=== PATIENT | female | born 1990 | race Caucasian/White ===

== ENCOUNTER 2022-01-18 06:26 | Emergency (ER) | payer OTHER ==
[~2022-01-18] VITALS: Ht 160 cm; Wt 88.5 kg
[2022-01-18 06:32] VITALS: BP 133/70
--- NOTE | 2022-01-18 06:49 | NUR ---
PATIENT TO BED AMBULATORY
--- NOTE | 2022-01-18 07:14 | NUR ---
Dr. Lindsay examining patient.
--- NOTE | 2022-01-18 07:21 | NUR ---
BIB SELF C/O BLOOD IN STOOL AT 0100 AND 0500.BRIGHT RED BLOOD. PT STATES HAD 1 CLOT AT 0500. PT STATES THIS HAS HAPPENED BEFORE AND HAS A HX OF HEMORRHOIDS. DENIES N/V/D; SKIN IS PINK/WARM/DRY; ABD SOFT. NO TENDERNESS. AAOX4 WITH EVEN AND STEADY GAIT; LUNGS CLEAR BL; HR EVEN AND REGULAR; PT DENIES ANY FEVER, CP, SOB, OR COUGH AT THIS TIME; PATIENT STATES PAIN OF 1/10 AT THIS TIME; VSS; PATIENT POSITIONED FOR COMFORT; HOB ELEVATED; BEDRAILS UP X1; BED DOWN. ER MD MADE AWARE OF PT STATUS.
--- NOTE | 2022-01-18 07:25 | NUR ---
LAB AT BEDSIDE.
--- NOTE | 2022-01-18 07:26 | NUR ---
RECEIVED REPORT FROM KJ FINNEGAN RN. TRANSFER OF CARE AT THIS TIME.
[2022-01-18 07:52] LABS: BASOPHILS % (AUTO) 0.2 % (0.0-2.0); EOSINOPHILS % (AUTO) 0.3 % (0.0-4.0); HEMATOCRIT 34.9 % (36-48); HEMOGLOBIN 11.6 g/dL (12.0-16.0); LYMPHOCYTES # (AUTO) 1.1 K/uL (2.5-16.5); LYMPHOCYTES % (AUTO) 8.9 % (20.5-51.1); MEAN CORPUSCULAR HEMOGLOBIN 29 pg (27-31); MEAN CORPUSCULAR HGB CONC 33 g/dL (33-37); MEAN CORPUSCULAR VOLUME 85.5 fL (80-94); MONOCYTES % (AUTO) 8.1 % (1.7-9.3); NEUTROPHILS # (AUTO) 9.7 K/uL (1.8-7.7); NEUTROPHILS % (AUTO) 82.5 % (42.2-75.2); PLATELET COUNT (AUTO) 209 K/uL (140-450); RED BLOOD CELL COUNT(AUTO) 4.08 MIL/uL (4.20-5.40); RED CELL DISTRIBUTION WIDTH 14.3 % (11.6-13.7); WHITE BLOOD COUNT (AUTO) 11.8 K/uL (4.8-10.8)
[2022-01-18 08:07] LABS: ALBUMIN 3.1 g/dL (3.4-5.0); CARBON DIOXIDE 25.8 mmol/L (21-32); CREATININE 0.8 mg/dL (0.6-1.3); POTASSIUM 3.8 mmol/L (3.5-5.1); TOTAL BILIRUBIN 0.3 mg/dL (0.0-1.0)
--- NOTE | 2022-01-18 08:59 | NUR ---
Patient discharged with v/s stable. Written and verbal after care instructions given FOR COLONOSCOPY and explained. Patient verbalized understanding. Ambulatory with steady gait. All questions addressed prior to discharge. Advised to follow up with PMD.
[2022-01-18 09:03] VITALS: BP 128/74
== END 2022-01-18 08:59 | disposition home or self-care (01) ==
LOC: MED 06:26
DX: K64.4 Residual hemorrhoidal skin tags (principal); K62.5 Hemorrhage of anus and rectum
CPT/HCPCS: 36415; 80053; 85025; 99283